=== PATIENT | male | born 1965 | race Caucasian/White ===

== ENCOUNTER 2021-01-15 15:53 | Day surgery (SDC) | payer MEDICARE, OTHER ==
[2021-01-15] MEDS ORDERED: BUPIVACAINE 0.5% VIAL IJ ONE (15:54)
[2021-01-15] MEDS ORDERED: Xylocaine 1% Vial 30 ML PF IJ ONE (15:54)
[2021-01-15] MEDS ORDERED: Depo-Medrol 40 MG/ML IM ONE (15:54)
--- NOTE | 2021-01-15 20:40 | XRAY ---
Indication: Left knee injection. Intraoperative fluoroscopy provided for 11 seconds. Single digital spot image submitted for interpretation demonstrates needle tip projecting over the left femur intercondylar notch. Small amount of contrast injected for needle tip placement. Correlate with intraoperative findings/report.
--- NOTE | 2021-01-15 20:50 | XRAY ---
Indication: Right knee injection. Intraoperative fluoroscopy provided for 11 seconds. Single digital spot image submitted for interpretation demonstrates needle tip projecting over the right femur intercondylar notch. Small amount of contrast injected for needle tip placement. Correlate with intraoperative findings/report.
--- NOTE | 2021-01-16 14:59 | XRAY ---
11 seconds of fluoroscopy was used in surgery for a left knee intra-articular injection.
--- NOTE | 2021-01-16 14:59 | XRAY ---
11 seconds of fluoroscopy was used in surgery for a right knee intra-articular injection.
== END 2021-01-15 18:25 | disposition home or self-care (01) ==
LOC: SDC-PAIN 15:53
PROVIDERS: ATTEND Psychiatry & Neurology Pain Medicine
DX: M17.0 Bilateral primary osteoarthritis of knee (principal); E11.9 Type 2 diabetes mellitus without complications; Z79.899 Other long term (current) drug therapy
CPT/HCPCS: 20610; 73560; 77002; 82947; J1030; J2001; Q9966

== ENCOUNTER 2021-02-05 06:51 | Day surgery (SDC) | payer MEDICARE, OTHER ==
[2021-02-05] MEDS ORDERED: Sodium Chloride 0.9% 10 ML FLUSH Syringe IJ ONE (06:52)
[2021-02-05] MEDS ORDERED: Depo-Medrol 40 MG/ML IM ONE (06:52)
[2021-02-05] MEDS ORDERED: DIPRIVAN 200 MG/20 ML IV ONE (08:27)
[2021-02-05] MEDS ORDERED: Lactated Ringers 1,000 ML IV ONE (09:54)
--- NOTE | 2021-02-05 09:58 | XRAY ---
36 seconds fluoroscopy time in surgery for right L4-S1 transforaminal NOE.
--- NOTE | 2021-02-05 10:07 | XRAY ---
Indication: Right L4-S1 transforaminal NOE. Intraoperative fluoroscopy provided for 36 seconds. 3 digital spot image submitted for interpretation demonstrates posterior needle tips projecting over the expected right L4 and L5 nerve roots. Small amount of contrast injected for needle tip placement. Correlate with intraoperative findings/report.
== END 2021-02-05 08:54 | disposition home or self-care (01) ==
LOC: SDC-PAIN 06:51
PROVIDERS: ATTEND Psychiatry & Neurology Pain Medicine
DX: M54.16 Radiculopathy, lumbar region (principal); E11.9 Type 2 diabetes mellitus without complications; I10 Essential (primary) hypertension; Z79.899 Other long term (current) drug therapy
CPT/HCPCS: 64483; 64484; 72100; 77003; 82947; J1030; J2704; Q9966

== ENCOUNTER 2021-03-12 07:40 | Day surgery (SDC) | payer MEDICARE, OTHER ==
[2021-03-12] MEDS ORDERED: Sodium Chloride 0.9% 10 ML FLUSH Syringe IJ ONE (07:41)
[2021-03-12] MEDS ORDERED: Depo-Medrol 40 MG/ML IM ONE (07:41)
[2021-03-12] MEDS ORDERED: Lactated Ringers 1,000 ML IV ONE (08:49)
[2021-03-12] MEDS ORDERED: DIPRIVAN 200 MG/20 ML IV ONE ×2 (08:56→09:03)
--- NOTE | 2021-03-12 10:32 | XRAY ---
Indication: Left L4-S1 transforaminal NOE. Intraoperative fluoroscopy provided for 1 minute 9 seconds. 5 digital spot images submitted for interpretation demonstrates posterior needle tips projecting over the expected left L4 and L5 nerve roots. Small amount of contrast injected for needle tip placement. Correlate with intraoperative findings/report.
--- NOTE | 2021-03-12 10:42 | XRAY ---
1 minute 9 seconds of fluoroscopy was used in surgery for a left L4-S1 transforaminal NOE.
== END 2021-03-12 09:25 | disposition home or self-care (01) ==
LOC: SDC-PAIN 07:40
PROVIDERS: ATTEND Psychiatry & Neurology Pain Medicine
DX: M54.16 Radiculopathy, lumbar region (principal); E11.9 Type 2 diabetes mellitus without complications; I10 Essential (primary) hypertension; Z79.899 Other long term (current) drug therapy
CPT/HCPCS: 64483; 64484; 72100; 77003; 82947; J1030; J2704; Q9966

== ENCOUNTER 2021-08-06 06:48 | Day surgery (SDC) | payer MEDICARE, OTHER ==
[2021-08-06] MEDS ORDERED: Depo-Medrol 40 MG/ML IM ONE (06:49)
[2021-08-06] MEDS ORDERED: Xylocaine 1% Vial 30 ML PF IJ ONE (06:49)
[2021-08-06] MEDS ORDERED: Sodium Chloride 0.9(Preservative Free) 10 ML IJ ONE (06:49)
[2021-08-06] MEDS ORDERED: DIPRIVAN 200 MG/20 ML IV ONE (08:16)
[2021-08-06] MEDS ORDERED: Lactated Ringers 1,000 ML IV ONE (08:54)
--- NOTE | 2021-08-06 10:17 | XRAY ---
Indication: Lumbar NOE. Intraoperative fluoroscopy provided for 21 seconds. 2 digital spot images submitted for interpretation demonstrates midline posterior needle tip projecting just posterior to L4-L5 interspace. Small amount of contrast injected for needle tip placement. Correlate with intraoperative findings/report.
--- NOTE | 2021-08-06 10:33 | XRAY ---
21 seconds fluoroscopy time in surgery for lumbar NOE.
== END 2021-08-06 08:40 | disposition home or self-care (01) ==
LOC: SDC-PAIN 06:48
PROVIDERS: ATTEND Psychiatry & Neurology Pain Medicine
DX: M54.16 Radiculopathy, lumbar region (principal); E11.9 Type 2 diabetes mellitus without complications; Z79.899 Other long term (current) drug therapy
CPT/HCPCS: 62323; 72100; 77003; 82947; J1030; J2001; J2704; Q9966

== ENCOUNTER 2022-02-11 08:07 | Day surgery (SDC) | payer MEDICARE, OTHER ==
[2022-02-11] MEDS ORDERED: Depo-Medrol 40 MG/ML IM ONE (08:08)
[2022-02-11] MEDS ORDERED: Sodium Chloride 0.9(Preservative Free) 10 ML IJ ONE (08:08)
[2022-02-11] MEDS ORDERED: TRANDATE 20 MG/4 ML SYRINGE IV ONE (09:15)
[2022-02-11] MEDS ORDERED: DIPRIVAN 200 MG/20 ML IV ONE (09:37)
--- NOTE | 2022-02-11 10:28 | XRAY ---
Indication: Left L4-S1 transforaminal NOE. Intraoperative fluoroscopy provided for 51 seconds. 4 digital spot image submitted for interpretation demonstrates posterior needle tips projecting over the expected left L4 and L5 nerve roots. Small amount of contrast injected for needle tip placement. Correlate with intraoperative findings/report.
--- NOTE | 2022-02-11 10:59 | XRAY ---
51 seconds fluoroscopy time in surgery for left L3-L5 transforaminal NOE.
[2022-02-11] MEDS ORDERED: Lactated Ringers 1,000 ML IV ONE (11:50)
== END 2022-02-11 10:10 | disposition home or self-care (01) ==
LOC: SDC-PAIN 08:07
PROVIDERS: ATTEND Psychiatry & Neurology Pain Medicine
DX: M54.16 Radiculopathy, lumbar region (principal); E11.9 Type 2 diabetes mellitus without complications; Z79.899 Other long term (current) drug therapy
CPT/HCPCS: 64483; 64484; 72100; 77003; 82947; J1030; J2704; Q9966

== ENCOUNTER 2022-05-06 09:40 | Day surgery (SDC) | payer MEDICARE, OTHER ==
[2022-05-06] MEDS ORDERED: LIDOCAINE HCL 2% 100 MG/5 ML IJ ONE (09:41)
[2022-05-06] MEDS ORDERED: Depo-Medrol 40 MG/ML IM ONE (09:41)
[2022-05-06] MEDS ORDERED: DIPRIVAN 200 MG/20 ML IV ONE (11:11)
[2022-05-06] MEDS ORDERED: Lactated Ringers 1,000 ML IV ONE (13:17)
--- NOTE | 2022-05-06 14:32 | XRAY ---
Indication: Bilateral L4-S1 MBB. Intraoperative fluoroscopy provided for 21 seconds. 2 digital spot image submitted for interpretation demonstrates posterior needle tips projecting over the expected left and right L4-S1 nerve roots. Correlate with intraoperative findings/report.
--- NOTE | 2022-05-06 14:49 | XRAY ---
21 seconds fluoroscopy time in surgery for bilateral L4-S1 MBB.
== END 2022-05-06 11:45 | disposition home or self-care (01) ==
LOC: SDC-PAIN 09:40 → EDSTATUS 12:46
PROVIDERS: ATTEND Psychiatry & Neurology Pain Medicine
DX: M47.816 Spondylosis without myelopathy or radiculopathy, lumbar region (principal); E11.9 Type 2 diabetes mellitus without complications; Z79.899 Other long term (current) drug therapy
CPT/HCPCS: 64493; 64494; 72020; 77002; 82947; J1030; J2704

== ENCOUNTER 2022-07-27 00:54 | Emergency (ER) | payer MEDICARE, OTHER ==
[2022-07-27 00:57] VITALS: O2SAT 95
[2022-07-27 01:11] VITALS: PULSE 84
--- NOTE | 2022-07-27 01:34 | ERPHSYRPT ---
- History of Present Illness Time Seen by Provider: 07/27/22 01:06 Historian: patient, family Exam Limitations: no limitations Patient Subjective Stated Complaint: chest pain since 4pm Triage Nursing Assessment: pt ambulated into ER without diff, spouse at bedside. Pt alert and oriented x4, cooperative. Pt c/o chest pain since 4pm today while watching tv. Pt has pain radiating down left arm. Heart tones reg, abd obese and tight with active bs x4 quad, nontender. Pt is currently seeing Dr. Jurado, manager of project management, in [place]. Pt is wearing a lunchroom monitor prescribed by Dr. Jurado x2 weeks. Monitor comes off 08/04/22 and pt will have a stress test on 08/03/22. Physician History: Some chest pain without pattern today, onset about 8 hours ago, mild. He is seeing a manager of project management now, wearing a heart monitor. Has a F/U in a week. No known CAD. Timing/Duration: today Activities at Onset: none Quality: dullness Location: substernal Chest Pain Radiation: arm Severity of Pain-Max: mild Severity of Pain-Current: mild Modifying Factors: Improves With: nothing Associated Symptoms: denies symptoms Prior Chest Pain/Cardiac Workup: recently seen/treated (seeing a manager of project management now) Aspirin Treatment Today: 325 mg x 1 Allergies/Adverse Reactions: ropinirole Adverse Reaction (Severe, Verified 07/27/22 01:11) Vomiting semaglutide [From Ozempic] Adverse Reaction (Severe, Verified 07/27/22 01:12) Home Medications: Albuterol 8 gm Mdi Hfa [Ventolin Hfa MDI] 2 puffs IH QID PRN PRN 07/27/22 [History] Levothyroxine Sodium [Levothyroxine] 37.5 mcg PO DAILY 07/27/22 [History] Omeprazole 20 mg PO DAILY 07/27/22 [History] Oxycodone / APAP 10/325 mg [Oxycodone-Acetaminophen 10-325] 1 tab PO BID PRN PRN 07/27/22 [History] Valsartan/Hydrochlorothiazide [Valsartan-Hctz 320-12.5 mg Tab] 1 tab PO BID 07/27/22 [History] Hx Tetanus, Diphtheria Vaccination/Date Given: Yes Hx Influenza Vaccination/Date Given: No Hx Pneumococcal Vaccination/Date Given: No Travel Risk - International Travel Have you traveled outside of the country in past 3 weeks: No - Coronavirus Screening Are you exhibiting any of the following symptoms?: No Close contact with a COVID-19 positive Pt in past 14-21 Days: No - Vaccine Status Have you recieved a Covid-19 vaccination: No - Review of Systems Constitutional: No Symptoms Eyes: No Symptoms Ears, Nose, & Throat: No Symptoms Respiratory: No Symptoms Cardiac: No Symptoms Abdominal/Gastrointestinal: No Symptoms Genitourinary Symptoms: No Symptoms Musculoskeletal: No Symptoms Skin: No Symptoms Neurological: No Symptoms Psychological: No Symptoms Endocrine: No Symptoms Hematologic/Lymphatic: No Symptoms Immunological/Allergic: No Symptoms All Other Systems: Reviewed and Negative - Past Medical History Pertinent Past Medical History: Yes Neurological History: No Pertinent History ENT History: No Pertinent History Cardiac History: Angina, High Cholesterol, Hypertension Respiratory History: COPD, Sleep Apnea Endocrine Medical History: Hypothyroidism Musculoskeletal History: Arthritis, Other GI Medical History: GERD, Other History: No Pertinent History Psycho-Social History: No Pertinent History Male Reproductive Disorders: No Pertinent History Other Medical History: fatty liver disease. fibrosis of the liver. chronic back pain - Past Surgical History Past Surgical History: Yes Neuro Surgical History: No Pertinent History Cardiac: No Pertinent History Respiratory: No Pertinent History Gastrointestinal: No Pertinent History Genitourinary: No Pertinent History Musculoskeletal: No Pertinent History, Other Male Surgical History: No Pertinent History Other Surgical History: injections in spine for back pain by Dr. Peña (pain management). flexor tendon surgery. rt arm surgery. colonoscopy - Social History Smoking Status: Former smoker Exposure to second hand smoke: No Drug Use: none Patient Lives Alone: No - Nursing Vital Signs Nursing Vital Signs: Initial Vital Signs Temperature 98.7 F 07/27/22 00:56 Pulse Rate 87 07/27/22 00:56 Respiratory Rate 24 07/27/22 00:56 Blood Pressure 169/101 07/27/22 00:56 O2 Sat by Pulse Oximetry 95 07/27/22 00:56 Pain Scale Pain Intensity 0 - Physical Exam General Appearance: no apparent distress Eye Exam: PERRL/EOMI Ears, Nose, Throat Exam: normal ENT inspection Neck Exam: normal inspection Respiratory Exam: normal breath sounds, lungs clear Cardiovascular Exam: regular rate/rhythm, normal heart sounds Gastrointestinal/Abdomen Exam: soft, normal bowel sounds, distention Rectal Exam: deferred Back Exam: normal inspection Extremity Exam: normal inspection, normal range of motion Neurologic Exam: alert, oriented x 3, cooperative Skin Exam: normal color, warm, dry SpO2 Interpretation: normal SpO2: 95 O2 Delivery: Room Air - Course Nursing assessment & vital signs reviewed: Yes EKG Interpreted by Me: RATE (84), Sinus Rhythm, NORMAL AXIS, NORMAL INTERVALS, NORMAL QRS, NORMAL ST-T - Radiology Exams Chest X-ray Interpretation: Interpreted by me, Negative Ordered Tests: Active Orders 24 hr Category Date Time Status CHEST 1 VIEW (PORTABLE) Stat Exams 07/27/22 01:32 Taken CBC W DIFF Stat Lab 07/27/22 01:50 Completed CMP Stat Lab 07/27/22 01:50 Completed D-DIMER QUANTITATIVE Stat Lab 07/27/22 01:50 Completed NT PRO BNPII Stat Lab 07/27/22 01:56 Received TROPONIN Q4H Lab 07/27/22 01:50 Completed TROPONIN Q4H Lab 07/27/22 05:45 Ordered TROPONIN Q4H Lab 07/27/22 09:45 Ordered Medication Summary Discontinued Medications Generic Name Dose Route Start Last Admin Trade Name Freq PRN Reason Stop Dose Admin Nitroglycerin 0.4 mg 07/27/22 01:41 07/27/22 01:49 Nitroglycerin 0.4 Mg (Ed) 0.4 Mg Tab.Subl SL 07/27/22 01:42 0.4 mg STAT ONE Administration Lab/Rad Data: Laboratory Result Diagrams 07/27/22 01:50 07/27/22 01:50 Laboratory Results 07/27/22 07/27/22 07/27/22 Range/Units 01:50 01:50 01:50 WBC (4.0-10.5) x10^3/uL RBC (4.1-5.6) x10^6/uL Hgb (12.5-18.0) g/dL Hct (42-50) % MCV (78-100) fL MCH (26-32) pg MCHC (32-36) g/dL RDW (11.5-14.0) % Plt Count (150-450) x10^3/uL MPV (7.5-11.0) fL Gran % (36.0-66.0) % Immature Gran % (Auto) (0.00-0.4) % Nucleat RBC Rel Count (0.00-0.1) % Eos # (Auto) (0-0.5) x10^3/uL Immature Gran # (Auto) (0.00-0.03) x10^3u/L Absolute Lymphs (auto) (1.0-4.6) x10^3/uL Absolute Monos (auto) (0.0-1.3) x10^3/uL Absolute Nucleated RBC (0.00-0.01) x10^3u/L Lymphocytes % (24.0-44.0) % Monocytes % (0.0-12.0) % Eosinophils % (0.00-5.0) % Basophils % (0.0-0.4) % Absolute Granulocytes (1.4-6.9) x10^3/uL Basophils # (0-0.4) x10^3/uL D-Dimer 0.43 (0.0-0.50) mg/L Sodium 138 (137-145) mmol/L Potassium 3.8 (3.5-5.1) mmol/L Chloride 100 (98-107) mmol/L Carbon Dioxide 28 (22-30) mmol/L Anion Gap 13.4 (5-15) MEQ/L BUN 11 (9-20) mg/dL Creatinine 0.94 (0.66-1.25) mg/dL Estimated GFR > 60.0 ML/MIN Glucose 180 H (74-106) mg/dL Calcium 8.9 (8.4-10.2) mg/dL Total Bilirubin 0.70 (0.2-1.3) mg/dL AST 40 (17-59) U/L ALT 28 (0-50) U/L Alkaline Phosphatase 113 (38-126) U/L Troponin I < 0.012 (0.000-0.034) ng/mL Serum Total Protein 7.5 (6.3-8.2) g/dL Albumin 4.1 (3.5-5.0) g/dL 07/27/22 Range/Units 01:50 WBC 7.9 (4.0-10.5) x10^3/uL RBC 5.72 H (4.1-5.6) x10^6/uL Hgb 17.5 (12.5-18.0) g/dL Hct 51.2 H (42-50) % MCV 89.5 (78-100) fL MCH 30.6 (26-32) pg MCHC 34.2 (32-36) g/dL RDW 13.2 (11.5-14.0) % Plt Count 242 (150-450) x10^3/uL MPV 10.0 (7.5-11.0) fL Gran % 59.2 (36.0-66.0) % Immature Gran % (Auto) 0.3 (0.00-0.4) % Nucleat RBC Rel Count 0.0 (0.00-0.1) % Eos # (Auto) 0.13 (0-0.5) x10^3/uL Immature Gran # (Auto) 0.02 (0.00-0.03) x10^3u/L Absolute Lymphs (auto) 2.26 (1.0-4.6) x10^3/uL Absolute Monos (auto) 0.73 (0.0-1.3) x10^3/uL Absolute Nucleated RBC 0.00 (0.00-0.01) x10^3u/L Lymphocytes % 28.7 (24.0-44.0) % Monocytes % 9.3 (0.0-12.0) % Eosinophils % 1.7 (0.00-5.0) % Basophils % 0.8 (0.0-0.4) % Absolute Granulocytes 4.67 (1.4-6.9) x10^3/uL Basophils # 0.06 (0-0.4) x10^3/uL D-Dimer (0.0-0.50) mg/L Sodium (137-145) mmol/L Potassium (3.5-5.1) mmol/L Chloride (98-107) mmol/L Carbon Dioxide (22-30) mmol/L Anion Gap (5-15) MEQ/L BUN (9-20) mg/dL Creatinine (0.66-1.25) mg/dL Estimated GFR ML/MIN Glucose (74-106) mg/dL Calcium (8.4-10.2) mg/dL Total Bilirubin (0.2-1.3) mg/dL AST (17-59) U/L ALT (0-50) U/L Alkaline Phosphatase (38-126) U/L Troponin I (0.000-0.034) ng/mL Serum Total Protein (6.3-8.2) g/dL Albumin (3.5-5.0) g/dL - Progress Progress: improved Air Movement: good Progress Note: 07/27/22 02:37 Pain free with one NTG. He does not want repeat troponins, or admit, or transfer, wants to go home, advised that we cannot exclude worsening condition, to include OH and . Rx one bottle of SL NTG to have pending seeing his manager of project management. Could not do E-RX, hand written. 07/27/22 02:45 Blood Culture(s) Obtained: No Antibiotics given: No Counseled pt/family regarding: lab results, diagnosis, need for follow-up, rad results Medical Desision Making - Independent Historian Additional History obtained from: Spouse - Diagnostic Testing Diagnostic test were ordered, analyzed, and reviewed by me: Yes Radiological Interpretation: Interpreted by me - Risk of complications The pt has a mod risk of morbidity or mortality based on: Need for prescription drug management - Departure Departure Disposition: Home Clinical Impression: Chest pain Qualifiers: Chest pain type: unspecified Qualified Code(s): R07.9 - Chest pain, unspecified Condition: Stable Critical Care Time: No Referrals: SAM OSMAN [Primary Care Provider] - Follow up/PCP as directed Instructions: Chest Pain (DC) Additional Instructions: Home for rest. Further testing or transfer not done at your request. Stay on aspirin, nitroglycerin if needed, see your manager of project management.
[2022-07-27] MEDS ORDERED: Nitrostat 0.4 MG (ED) SL ONE (01:41)
[2022-07-27 01:57] LABS: Absolute Neutrophil Ct (ANC) 4.67 x10^3/uL (1.4-6.9); BASOPHIL % 0.8 % (0.0-0.4); Basophil (Absolute #) 0.06 x10^3/uL (0-0.4); Eosinophil % 1.7 % (0.00-5.0); Eosinophil (Absolute #) 0.13 x10^3/uL (0-0.5); Hematocrit 51.2 % (42-50); Hemoglobin 17.5 g/dL (12.5-18.0); IMMATURE GRAN # 0.02 x10^3u/L (0.00-0.03); IMMATURE GRAN % 0.3 % (0.00-0.4); Lymphocyte (Absolute #) 2.26 x10^3/uL (1.0-4.6); Lymphocytes % 28.7 % (24.0-44.0); Mean Cell Volume 89.5 fL (78-100); Mean Corpuscular Hemoglobin 30.6 pg (26-32); Mean Corpuscular Hgb Concent. 34.2 g/dL (32-36); Monocyte (Absolute #) 0.73 x10^3/uL (0.0-1.3); Monocytes % 9.3 % (0.0-12.0); Neutrophil % 59.2 % (36.0-66.0); Platelet Count 242 x10^3/uL (150-450); Red Blood Count 5.72 x10^6/uL (4.1-5.6); Red Cell Distribution Width 13.2 % (11.5-14.0); White Blood Count 7.9 x10^3/uL (4.0-10.5)
[2022-07-27 02:03] LABS: ALBUMIN 4.1 g/dL (3.5-5.0); ALKALINE PHOSPHATASE 113 U/L (38-126); ANION GAP 13.4 MEQ/L (5-15); BLOOD UREA NITROGEN 11 mg/dL (9-20); CHLORIDE 100 mmol/L (98-107); Calcium 8.9 mg/dL (8.4-10.2); Carbon Dioxide 28 mmol/L (22-30); Creatinine 1 0.94 mg/dL (0.66-1.25); EST GLOMERULAR FILTRATION RATE > 60.0 ML/MIN; Glucose 180 mg/dL (74-106); Potassium 3.8 mmol/L (3.5-5.1); SGOT/AST 40 U/L (17-59); SGPT/ALT 28 U/L (0-50); SODIUM 138 mmol/L (137-145); Total Protein 7.5 g/dL (6.3-8.2)
[2022-07-27 02:12] VITALS: BP 133/98
--- NOTE | 2022-07-27 08:38 | XRAY ---
Indication: Chest pain Comparison: None Portable chest slightly underinflated and clear. Heart not enlarged. Bony thorax intact with osteopenia, mild degenerative changes, and left chest wall electronic monitoring device. Impression: Nonacute chest.
== END 2022-07-27 02:57 | disposition home or self-care (01) ==
LOC: ED 00:54
DX: R07.9 Chest pain, unspecified (principal); E78.5 Hyperlipidemia, unspecified; I10 Essential (primary) hypertension; Z79.891 Long term (current) use of opiate analgesic; Z79.899 Other long term (current) drug therapy; Z28.310 Unvaccinated for COVID-19
CPT/HCPCS: 36000; 36415; 71045; 80053; 83880; 84484; 85025; 85379; 99283; A9270-GY

== ENCOUNTER 2023-01-13 15:12 | Day surgery (SDC) | payer MEDICARE, OTHER ==
[2023-01-13] MEDS ORDERED: Depo-Medrol 40 MG/ML IM ONE (15:13)
[2023-01-13] MEDS ORDERED: BUPIVACAINE 0.5% VIAL IJ ONE (15:13)
[2023-01-13] MEDS ORDERED: LIDOCAINE HCL 1% 50 MG/5 ML VL PF IJ ONE (15:13)
--- NOTE | 2023-01-13 20:47 | XRAY ---
Indication: Right knee injection. Intraoperative fluoroscopy provided for 10 seconds. Single digital spot image submitted for interpretation demonstrates needle tip projecting over right femur intercondylar notch. Small amount of contrast injected for needle tip placement. Correlate with intraoperative findings/report.
--- NOTE | 2023-01-13 20:47 | XRAY ---
Indication: Left knee injection. Intraoperative fluoroscopy provided for 13 seconds. Single digital spot image submitted for interpretation demonstrates needle tip projecting over left femur intercondylar notch. Small amount of contrast injected for needle tip placement. Correlate with intraoperative findings/report.
--- NOTE | 2023-01-14 08:45 | XRAY ---
10 seconds of fluoroscopy was used in surgery for a right intra-articular knee injection.
--- NOTE | 2023-01-14 08:46 | XRAY ---
13 seconds of fluoroscopy was used in surgery for a left intra-articular knee injection.
== END 2023-01-13 18:32 | disposition home or self-care (01) ==
LOC: SDC-PAIN 15:12
PROVIDERS: ATTEND Psychiatry & Neurology Pain Medicine
DX: M17.0 Bilateral primary osteoarthritis of knee (principal); E11.9 Type 2 diabetes mellitus without complications; Z79.899 Other long term (current) drug therapy
CPT/HCPCS: 20610; 73560; 77002; 82947; J1030; J2001; Q9966

== ENCOUNTER 2023-01-14 08:42 | Day surgery (SDC) | payer MEDICARE, OTHER ==
[2023-01-14] MEDS ORDERED: BUPIVACAINE 0.5% VIAL IJ ONE (08:43)
[2023-01-14] MEDS ORDERED: DIPRIVAN 200 MG/20 ML IV ONE (11:09)
--- NOTE | 2023-01-14 12:24 | XRAY ---
Indication: Bilateral L4-S1 MBB. Intraoperative fluoroscopy provided for 16 seconds. Single digital spot image submitted for interpretation demonstrates posterior needle tips projecting over the expected left and right L4-S1 nerve roots. Correlate with intraoperative findings/report.
[2023-01-14] MEDS ORDERED: Lactated Ringers 1,000 ML IV ONE (12:28)
--- NOTE | 2023-01-14 12:33 | XRAY ---
16 seconds of fluoroscopy was used in surgery for a bilateral L4-S1 MBB.
== END 2023-01-14 11:40 | disposition home or self-care (01) ==
LOC: SDC-PAIN 08:42
PROVIDERS: ATTEND Psychiatry & Neurology Pain Medicine
DX: M47.816 Spondylosis without myelopathy or radiculopathy, lumbar region (principal); E11.9 Type 2 diabetes mellitus without complications
CPT/HCPCS: 64493; 64494; 72020; 77002; 82947; J2704

== ENCOUNTER 2023-01-23 20:47 | Emergency (ER) | payer MEDICARE, OTHER ==
[2023-01-23 20:54] VITALS: TEMP 97.9
[2023-01-23 21:05] LABS: Absolute Neutrophil Ct (ANC) 7.03 x10^3/uL (1.4-6.9); BASOPHIL % 0.7 % (0.0-0.4); Basophil (Absolute #) 0.07 x10^3/uL (0-0.4); Eosinophil % 1.3 % (0.00-5.0); Eosinophil (Absolute #) 0.13 x10^3/uL (0-0.5); Hematocrit 56.6 % (42-50); Hemoglobin 18.6 g/dL (12.5-18.0); IMMATURE GRAN # 0.02 x10^3u/L (0.00-0.03); IMMATURE GRAN % 0.2 % (0.00-0.4); Lymphocyte (Absolute #) 2.31 x10^3/uL (1.0-4.6); Lymphocytes % 22.5 % (24.0-44.0); Mean Cell Volume 88.3 fL (78-100); Mean Corpuscular Hgb Concent. 32.9 g/dL (32-36); Mean Platelet Volume 9.8 fL (7.5-11.0); Monocyte (Absolute #) 0.72 x10^3/uL (0.0-1.3); Neutrophil % 68.3 % (36.0-66.0); Platelet Count 207 x10^3/uL (150-450); Red Blood Count 6.41 x10^6/uL (4.1-5.6); Red Cell Distribution Width 12.7 % (11.5-14.0); White Blood Count 10.3 x10^3/uL (4.0-10.5)
[2023-01-23] MEDS ORDERED: NITRO-BID 2% UD PACKETS TOP ONE (21:05)
[2023-01-23] MEDS ORDERED: BABY ASPIRIN 81 MG CHEW PO ONE (21:05)
[2023-01-23] MEDS ORDERED: NITRO-BID 2% UD PACKETS ONE (21:06)
[2023-01-23] MEDS ORDERED: BABY ASPIRIN 81 MG CHEW ONE (21:06)
[2023-01-23] MEDS ORDERED: MORPHINE SULFATE 2 MG INJ IV ONE (21:14)
--- NOTE | 2023-01-23 21:17 | ERPHSYRPT ---
- History of Present Illness Time Seen by Provider: 01/23/23 21:00 Patient Subjective Stated Complaint: pt states that while resting he started experiencing left upper chest pain that radiates to his left armpit, he describ ed it as a constant pressure that he rates a 10/10. Triage Nursing Assessment: pt ambulated to room 6 independently with slow steady gait after standing on scale for weight acquisition. pt is alert and oriented times three, is able to move all extremities, able to speak in complete sentences, and with resp even and unlabored. heart sounds present and normal. no jvd or edema noted. bilat radail and pedal pulses palpable. anterior bilateral lung sounds clear throughout. skin warm, dry, intact, and slightly monica in color. denies fever, cough, chills. denies further radiation, n/v, sob, difficulty breathing, lightheadedness, dizziness, change in appetite, change in urination or bowel elimination. Physician History: 57yo m presents w/ complaints of chest pain. Pain started 2hr prior to coming to ED, states the pain is located over his left chest and into his left axillary region. 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 Pt states he can feel his pacemaker shock him, which is what causes this chest pain, which remains local to the site near the pacemaker. Pt denies radiation of pain in to neck, jaw or back. Pt currently denies soa, n/v/abdominal pain. Timing/Duration: today, hour(s) (2hrs) Activities at Onset: none Quality: burning, sharpness Location: other (left side chest, left lateral pectoris) Chest Pain Radiation: no radiation Severity of Pain-Max: moderate Severity of Pain-Current: mild Modifying Factors: Improves With: nothing Associated Symptoms: denies symptoms Nitro Today/Relief: no nitro taken today Aspirin Treatment Today: 81 mg x 2 Body Map: 1 - TTP in this region, states this is where is pain is located Allergies/Adverse Reactions: metformin Adverse Reaction (Severe, Verified 01/23/23 20:48) Stomach Pain ropinirole Adverse Reaction (Severe, Verified 01/23/23 20:48) Vomiting semaglutide [From Ozempic] Adverse Reaction (Severe, Verified 01/23/23 20:48) Home Medications: Albuterol 8 gm Mdi Hfa [Ventolin Hfa MDI] 2 puffs IH QID PRN PRN 07/27/22 [History] Levothyroxine Sodium [Levothyroxine] 37.5 mcg PO DAILY 07/27/22 [History] Omeprazole 20 mg PO DAILY 07/27/22 [History] Oxycodone / APAP 10/325 mg [Oxycodone-Acetaminophen 10-325] 1 tab PO BID PRN PRN 07/27/22 [History] Valsartan/Hydrochlorothiazide [Valsartan-Hctz 320-12.5 mg Tab] 1 tab PO BID 04/20 [History] Fluticasone Propion/Salmeterol [Fluticasone-Salmeterol 250-50] 1 puff IH DAILY 01/23/23 [History] Hx Tetanus, Diphtheria Vaccination/Date Given: Yes Hx Influenza Vaccination/Date Given: No Hx Pneumococcal Vaccination/Date Given: No Immunizations Up to Date: Yes Travel Risk - International Travel Have you traveled outside of the country in past 3 weeks: No - Coronavirus Screening Are you exhibiting any of the following symptoms?: No Close contact with a COVID-19 positive Pt in past 14-21 Days: Yes - Vaccine Status Have you recieved a Covid-19 vaccination: No - Review of Systems Constitutional: No Fever, No Chills Eyes: No Symptoms Respiratory: No Cough, No Dyspnea Cardiac: Chest Pain Abdominal/Gastrointestinal: No Abdominal Pain, No Nausea, No Vomiting, No Diarrhea Neurological: No Dizziness, No Focal Weakness, No Sensory Changes - Past Medical History Pertinent Past Medical History: Yes Neurological History: No Pertinent History ENT History: No Pertinent History Cardiac History: Angina, Arrhythmia, High Cholesterol, Hypertension Respiratory History: COPD, Sleep Apnea Endocrine Medical History: Hypothyroidism Musculoskeletal History: Arthritis, Other GI Medical History: GERD, Other History: No Pertinent History Psycho-Social History: No Pertinent History Male Reproductive Disorders: No Pertinent History Other Medical History: fatty liver disease. fibrosis of the liver. chronic back/ knee pain - Past Surgical History Past Surgical History: Yes Neuro Surgical History: No Pertinent History Cardiac: No Pertinent History Respiratory: No Pertinent History Gastrointestinal: No Pertinent History Genitourinary: No Pertinent History Musculoskeletal: No Pertinent History, Other Male Surgical History: No Pertinent History Other Surgical History: injections in spine for back pain by Dr. Peña (pain management). flexor tendon surgery. rt arm surgery. colonoscopy. PPM. EGD, injections in bilat knees - Social History Smoking Status: Former smoker Exposure to second hand smoke: No Drug Use: none Patient Lives Alone: No - Nursing Vital Signs Nursing Vital Signs: Initial Vital Signs Temperature 97.9 F 01/23/23 20:47 Pulse Rate 65 01/23/23 20:47 Respiratory Rate 21 01/23/23 20:47 Blood Pressure 140/85 01/23/23 20:47 O2 Sat by Pulse Oximetry 98 01/23/23 20:47 Pain Scale Pain Intensity 8 - Physical Exam General Appearance: no apparent distress, alert Respiratory Exam: normal breath sounds, lungs clear, No respiratory distress Cardiovascular Exam: regular rate/rhythm, normal heart sounds, other (TTP over left chest in area of pacemaker, left pec) Gastrointestinal/Abdomen Exam: soft, No tenderness, No mass Extremity Exam: normal inspection, normal range of motion Neurologic Exam: alert, oriented x 3, cooperative, normal mood/affect, sensation nml, No motor deficits SpO2: 95 O2 Delivery: Nasal Cannula (wears O2 at night because he cannot tolerate cpap) - Course Nursing assessment & vital signs reviewed: Yes EKG Interpreted by Me: RATE (64), Sinus Rhythm, NORMAL AXIS, NORMAL QRS, Other (prolonged [place] interval) - CT Exams Chest CT Interpretation: Negative, Tele-radiologist Report, Other (Unremarkable study with no pulmonary masses, ground glass opacities, or) Ordered Tests: Active Orders 24 hr Category Date Time Status CHEST 1 VIEW (PORTABLE) Stat Exams 01/23/23 20:55 Completed CHEST WITH CONTRAST [CT] Stat Exams 01/23/23 21:14 Completed CBC W DIFF Stat Lab 01/23/23 21:00 Completed CMP Stat Lab 01/23/23 21:00 Completed TROPONIN Q4H Lab 01/23/23 21:00 Completed TROPONIN Q4H Lab 01/24/23 00:46 Completed TROPONIN Q4H Lab 01/24/23 05:00 Ordered Medication Summary Discontinued Medications Generic Name Dose Route Start Last Admin Trade Name Lm PRN Reason Stop Dose Admin Aspirin 162 mg 01/23/23 21:05 01/23/23 21:11 Aspirin 81 Mg Tab.Chew PO 01/23/23 21:06 162 mg STAT ONE Administration Aspirin Confirm 01/23/23 21:06 Aspirin 81 Mg Tab.Chew Administered 01/23/23 21:07 Dose 162 mg .ROUTE .STK-MED ONE Lorazepam 2 mg 01/23/23 22:18 01/23/23 22:21 Lorazepam 2 Mg/1 Ml 2 Mg Vial IV 01/23/23 22:19 2 mg STAT ONE Administration Lorazepam Confirm 01/23/23 22:20 Lorazepam 2 Mg/1 Ml 2 Mg Vial Administered 01/23/23 22:21 Dose 2 mg .ROUTE .STK-MED ONE Morphine Sulfate 2 mg 01/23/23 21:14 01/23/23 21:23 Morphine Sulfate 2 Mg/Ml Inj IV 01/23/23 21:15 2 mg STAT ONE Administration Morphine Sulfate Confirm 01/23/23 21:23 Morphine Sulfate 2 Mg/Ml Inj Administered 01/23/23 21:24 Dose 2 mg .ROUTE .STK-MED ONE Nitroglycerin 1 gm 01/23/23 21:05 01/23/23 21:11 Nitroglycerin 1 Gm Packet TOP 01/23/23 21:06 1 gm STAT ONE Administration Nitroglycerin Confirm 01/23/23 21:06 Nitroglycerin 1 Gm Packet Administered 01/23/23 21:07 Dose 1 gm .ROUTE .STK-MED ONE Ondansetron HCl 4 mg 01/23/23 22:35 01/23/23 22:49 Ondansetron Hcl 4 Mg/2 Ml Vial IV 01/23/23 22:36 4 mg STAT ONE Administration Ondansetron HCl Confirm 01/23/23 22:37 Ondansetron Hcl 4 Mg/2 Ml Vial Administered 01/23/23 22:38 Dose 4 mg .ROUTE .STK-MED ONE Lab/Rad Data: Laboratory Result Diagrams 01/23/23 21:00 01/23/23 21:00 Laboratory Results 01/24/23 01/23/23 01/23/23 Range/Units 00:46 21:00 21:00 WBC (4.0-10.5) x10^3/uL RBC (4.1-5.6) x10^6/uL Hgb (12.5-18.0) g/dL Hct (42-50) % MCV (78-100) fL MCH (26-32) pg MCHC (32-36) g/dL RDW (11.5-14.0) % Plt Count (150-450) x10^3/uL MPV (7.5-11.0) fL Gran % (36.0-66.0) % Immature Gran % (Auto) (0.00-0.4) % Nucleat RBC Rel Count (0.00-0.1) % Eos # (Auto) (0-0.5) x10^3/uL Immature Gran # (Auto) (0.00-0.03) x10^3u/L Absolute Lymphs (auto) (1.0-4.6) x10^3/uL Absolute Monos (auto) (0.0-1.3) x10^3/uL Absolute Nucleated RBC (0.00-0.01) x10^3u/L Lymphocytes % (24.0-44.0) % Monocytes % (0.0-12.0) % Eosinophils % (0.00-5.0) % Basophils % (0.0-0.4) % Absolute Granulocytes (1.4-6.9) x10^3/uL Basophils # (0-0.4) x10^3/uL Sodium 138 (137-145) mmol/L Potassium 4.0 (3.5-5.1) mmol/L Chloride 103 (98-107) mmol/L Carbon Dioxide 24 (22-30) mmol/L Anion Gap 14.6 (5-15) MEQ/L BUN 14 (9-20) mg/dL Creatinine 1.10 (0.66-1.25) mg/dL Estimated GFR > 60.0 ML/MIN Glucose 113 H (74-106) mg/dL Calcium 9.1 (8.4-10.2) mg/dL Total Bilirubin 1.10 (0.2-1.3) mg/dL AST 30 (17-59) U/L ALT 37 (0-50) U/L Alkaline Phosphatase 97 (38-126) U/L Troponin I < 0.012 < 0.012 (0.000-0.034) ng/mL Serum Total Protein 8.0 (6.3-8.2) g/dL Albumin 4.8 (3.5-5.0) g/dL 01/23/23 Range/Units 21:00 WBC 10.3 (4.0-10.5) x10^3/uL RBC 6.41 H (4.1-5.6) x10^6/uL Hgb 18.6 H (12.5-18.0) g/dL Hct 56.6 H (42-50) % MCV 88.3 (78-100) fL MCH 29.0 (26-32) pg MCHC 32.9 (32-36) g/dL RDW 12.7 (11.5-14.0) % Plt Count 207 (150-450) x10^3/uL MPV 9.8 (7.5-11.0) fL Gran % 68.3 H (36.0-66.0) % Immature Gran % (Auto) 0.2 (0.00-0.4) % Nucleat RBC Rel Count 0.0 (0.00-0.1) % Eos # (Auto) 0.13 (0-0.5) x10^3/uL Immature Gran # (Auto) 0.02 (0.00-0.03) x10^3u/L Absolute Lymphs (auto) 2.31 (1.0-4.6) x10^3/uL Absolute Monos (auto) 0.72 (0.0-1.3) x10^3/uL Absolute Nucleated RBC 0.00 (0.00-0.01) x10^3u/L Lymphocytes % 22.5 L (24.0-44.0) % Monocytes % 7.0 (0.0-12.0) % Eosinophils % 1.3 (0.00-5.0) % Basophils % 0.7 (0.0-0.4) % Absolute Granulocytes 7.03 H (1.4-6.9) x10^3/uL Basophils # 0.07 (0-0.4) x10^3/uL Sodium (137-145) mmol/L Potassium (3.5-5.1) mmol/L Chloride (98-107) mmol/L Carbon Dioxide (22-30) mmol/L Anion Gap (5-15) MEQ/L BUN (9-20) mg/dL Creatinine (0.66-1.25) mg/dL Estimated GFR ML/MIN Glucose (74-106) mg/dL Calcium (8.4-10.2) mg/dL Total Bilirubin (0.2-1.3) mg/dL AST (17-59) U/L ALT (0-50) U/L Alkaline Phosphatase (38-126) U/L Troponin I (0.000-0.034) ng/mL Serum Total Protein (6.3-8.2) g/dL Albumin (3.5-5.0) g/dL - Progress Progress: improved Air Movement: good Progress Note: 01/23/23 22:[address], had episode of large volume emesis containing bright red blood CT abd/pelvis ordered, zofran given 01/23/23 22:39 blood actually found to be coming from nostrils, not GI source, will cancel CT abd/pel 01/24/23 01:46 cp improved, pt sleeping in room troponins negative x2, imaging negative for acute pathology discussed possibility of admission for obs w/ pt - he stated he would not be willing to stay in the hospital i informed pt that he needs to f/u w/ Dr Jurado as soon as possible Discussed pt's feeling of being shocked by pacemaker w/ rep from [employer] - he stated that pacemaker has only been activating 1% of the time and that pt's who have infrequent activations can be more sensitive to the pacemaker turning on, and that this is a common occurrence. Will dc pt home w/ strict return precautions if pain returns or worsens - pt voiced understanding, states she will call Rhiannon's office first thing wednesday Blood Culture(s) Obtained: No Antibiotics given: No Will see patient in: office Counseled pt/family regarding: lab results, diagnosis, need for follow-up, rad results Medical Desision Making - Diagnostic Testing Diagnostic test were ordered, analyzed, and reviewed by me: Yes Radiological Interpretation: Teleradiologist Report - Risk of complications Low Risk: Low risk of morbidity from additional dx testing or treatment - Departure Departure Disposition: Home Clinical Impression: Chest pain Qualifiers: Chest pain type: unspecified Qualified Code(s): R07.9 - Chest pain, unspecified Condition: Stable Critical Care Time: No Referrals: SAM OSMAN [Primary Care Provider] - Follow up/PCP as directed Additional Instructions: Needs to f/u w/ Dr Jurado as soon as possible to discuss pacemaker function
[2023-01-23] MEDS ORDERED: MORPHINE SULFATE 2 MG INJ ONE (21:23)
[2023-01-23 21:24] LABS: ALBUMIN 4.8 g/dL (3.5-5.0); ALKALINE PHOSPHATASE 97 U/L (38-126); ANION GAP 14.6 MEQ/L (5-15); BLOOD UREA NITROGEN 14 mg/dL (9-20); CHLORIDE 103 mmol/L (98-107); Calcium 9.1 mg/dL (8.4-10.2); Carbon Dioxide 24 mmol/L (22-30); EST GLOMERULAR FILTRATION RATE > 60.0 ML/MIN; Glucose 113 mg/dL (74-106); SGOT/AST 30 U/L (17-59); SGPT/ALT 37 U/L (0-50); SODIUM 138 mmol/L (137-145)
--- NOTE | 2023-01-23 21:30 | XRAY ---
Indication: Chest pain. Comparison: July 27, 2022 Portable chest remains clear. Heart not enlarged with new left dual-lead pacemaker. Bony thorax intact again with osteopenia and mild degenerative changes. Impression: Continued nonacute chest with chronic features.
[2023-01-23] MEDS ORDERED: Ativan 2 MG/1 ML VIAL IV ONE (22:18)
[2023-01-23] MEDS ORDERED: Ativan 2 MG/1 ML VIAL ONE (22:20)
[2023-01-23] MEDS ORDERED: Zofran 4 MG/2 ML VIAL IV ONE (22:35)
[2023-01-23] MEDS ORDERED: Zofran 4 MG/2 ML VIAL ONE (22:37)
--- NOTE | 2023-01-23 23:52 | XRAY ---
CLINICAL HISTORY:chest pain COMPARISON:None. TECHNIQUE:Contiguous axial CT images of the chest were acquired with the administration of intravenous contrast. Coronal and sagittal reconstructions were obtained. FINDINGS: No pulmonary masses, ground glass opacities, or consolidations. Bilateral lower lobes posterior segments subpleural patchy parenchymal veiling, possibly gravitational changes. Middle lobe fine atelectatic plate. Tiny calcified right hilar and mediastinal lymph nodes. Otherwise, no pathologically enlarged mediastinal, hilar, or axillary lymph node identified. No free or encysted pleural effusions. Heart size is normal, and there is no pericardial effusion. Patent pulmonary artery and its main branches. A cardiac pacemaker is noted. Mildly dilated ascending aorta reaching 3.7 cm in diameter. Patent thoracic aorta with no definite intraluminal hypodense thrombi or dissecting intimal flaps. There is no definite mass lesion in the chest wall. No evidence of vertebral structural collapse or dislocation. Degenerative changes of the spine. Otherwise, an intact bony thoracic cage with no fractures. The scanned upper abdomen shows a fatty liver. IMPRESSION: Unremarkable study with no pulmonary masses, ground glass opacities, or consolidations. Electronically Signed by: Jarod Llamas MD. (01/23/2023 22:51:34 ELDER COUNSELOR)
[2023-01-24 01:39] VITALS: BP 108/65; PULSE 64; RESP 21
[2023-01-24 01:41] VITALS: O2SAT 95
== END 2023-01-24 02:02 | disposition home or self-care (01) ==
LOC: ED 20:47
DX: R07.9 Chest pain, unspecified (principal); E78.5 Hyperlipidemia, unspecified; I10 Essential (primary) hypertension; Z79.891 Long term (current) use of opiate analgesic; Z79.899 Other long term (current) drug therapy; Z28.310 Unvaccinated for COVID-19
CPT/HCPCS: 36000; 36415; 71045; 71260; 80053; 84484; 85025; 96374; 96375; 99284; J2060; J2270; J2405; A9270-GY

== ENCOUNTER 2023-03-10 06:38 | Day surgery (SDC) | payer MEDICARE, OTHER ==
[2023-03-10] MEDS ORDERED: XYLOCAINE-MPF 1% 5ML SDV IJ ONE (06:39)
[2023-03-10] MEDS ORDERED: BUPIVACAINE 0.5% VIAL IJ ONE (06:39)
[2023-03-10] MEDS ORDERED: Depo-Medrol 40 MG/ML IM ONE (06:39)
[2023-03-10] MEDS ORDERED: DIPRIVAN 200 MG/20 ML IV ONE (08:12)
--- NOTE | 2023-03-10 10:14 | XRAY ---
Indication: Right L4-S1 RFA. Intraoperative fluoroscopy provided for 24 seconds. 6 digital spot image submitted for interpretation demonstrates posterior needle tips projecting over the expected right L4-S1 nerve roots. Correlate with intraoperative findings/report.
--- NOTE | 2023-03-10 10:44 | XRAY ---
24 seconds of fluoroscopy was used in surgery for a right L4-S1 RFA.
[2023-03-10] MEDS ORDERED: Lactated Ringers 1,000 ML IV ONE (15:26)
== END 2023-03-10 08:41 | disposition home or self-care (01) ==
LOC: SDC-PAIN 06:38
PROVIDERS: ATTEND Psychiatry & Neurology Pain Medicine
DX: M47.816 Spondylosis without myelopathy or radiculopathy, lumbar region (principal); E11.9 Type 2 diabetes mellitus without complications; Z79.899 Other long term (current) drug therapy
CPT/HCPCS: 64635; 64636; 72100; 77002; 82947; J1030; J2704

== ENCOUNTER 2023-03-11 06:43 | Day surgery (SDC) | payer MEDICARE, OTHER ==
[2023-03-11] MEDS ORDERED: Depo-Medrol 40 MG/ML IM ONE (06:44)
[2023-03-11] MEDS ORDERED: XYLOCAINE-MPF 1% 5ML SDV IJ ONE (06:44)
[2023-03-11] MEDS ORDERED: BUPIVACAINE 0.5% VIAL IJ ONE (06:44)
[2023-03-11] MEDS ORDERED: DIPRIVAN 200 MG/20 ML IV ONE ×2 (08:01→08:13)
--- NOTE | 2023-03-11 09:29 | XRAY ---
Indication: Left L4-S1 RFA. Intraoperative fluoroscopy provided for 24 seconds. 4 digital spot image submitted for interpretation demonstrates posterior needle tips projecting over the expected left L4-S1 nerve roots. Correlate with intraoperative findings/report.
--- NOTE | 2023-03-11 10:25 | XRAY ---
24 seconds of fluoroscopy was used in surgery for a left L4-S1 RFA.
[2023-03-11] MEDS ORDERED: Lactated Ringers 1,000 ML IV ONE (15:47)
== END 2023-03-11 08:34 | disposition home or self-care (01) ==
LOC: SDC-PAIN 06:43
PROVIDERS: ATTEND Psychiatry & Neurology Pain Medicine
DX: M47.817 Spondylosis without myelopathy or radiculopathy, lumbosacral region (principal); E11.9 Type 2 diabetes mellitus without complications; Z79.899 Other long term (current) drug therapy
CPT/HCPCS: 64635; 64636; 72100; 77002; 82947; J1030; J2704

== ENCOUNTER 2023-07-21 14:52 | Day surgery (SDC) | payer MEDICARE, OTHER ==
[2023-07-21] MEDS ORDERED: LIDOCAINE HCL 1% 50 MG/5 ML VL PF IJ ONE (14:53)
[2023-07-21] MEDS ORDERED: SYNVISC 16 MG/2 ML SYRINGE IU ONE (14:53)
--- NOTE | 2023-07-21 21:02 | XRAY ---
Indication: Right knee injection Intraoperative fluoroscopy provided for 10 seconds. Single digital spot image submitted for interpretation demonstrates needle tip projecting over the right femur intercondylar notch. Small amount of contrast injected for needle tip placement. Correlate with intraoperative findings/report.
--- NOTE | 2023-07-21 21:02 | XRAY ---
Indication: Left knee injection Intraoperative fluoroscopy provided for 12 seconds. Single digital spot image submitted for interpretation demonstrates needle tip projecting over the left femur intercondylar notch. Small amount of contrast injected for needle tip placement. Correlate with intraoperative findings/report.
--- NOTE | 2023-07-22 08:57 | XRAY ---
12 seconds of fluoroscopy was used in surgery for a left intra-articular knee injection.
--- NOTE | 2023-07-22 08:57 | XRAY ---
10 seconds of fluoroscopy was used in surgery for a right intra-articular knee injection.
== END 2023-07-21 18:05 | disposition home or self-care (01) ==
LOC: SDC-PAIN 14:52
PROVIDERS: ATTEND Psychiatry & Neurology Pain Medicine
DX: M17.0 Bilateral primary osteoarthritis of knee (principal); E11.9 Type 2 diabetes mellitus without complications
CPT/HCPCS: 20610; 73560; 77002; 82947; J2001; J7325; Q9966

== ENCOUNTER 2023-07-28 15:05 | Day surgery (SDC) | payer MEDICARE, OTHER ==
[2023-07-28] MEDS ORDERED: SYNVISC 16 MG/2 ML SYRINGE IU ONE (15:06)
[2023-07-28] MEDS ORDERED: XYLOCAINE-MPF 1% 5ML SDV IJ ONE (15:06)
--- NOTE | 2023-07-28 18:26 | XRAY ---
Indication: Right knee injection. Intraoperative fluoroscopy provided for 15 seconds. Single digital spot image submitted for interpretation demonstrates needle tip projecting over right femur intercondylar notch. Small amount of contrast injected for needle tip placement. Correlate with intraoperative findings/report.
--- NOTE | 2023-07-28 18:27 | XRAY ---
Indication: Left knee injection. Intraoperative fluoroscopy provided for 11 seconds. Single digital spot image submitted for interpretation demonstrates needle tip projecting over left femur intercondylar notch. Small amount of contrast injected for needle tip placement. Correlate with intraoperative findings/report.
--- NOTE | 2023-07-29 14:46 | XRAY ---
15 seconds of fluoroscopy was used in surgery for a right intra-articular knee injection.
--- NOTE | 2023-07-29 14:47 | XRAY ---
11 seconds of fluoroscopy was used in surgery for a left intra-articular knee injection.
== END 2023-07-28 17:07 | disposition home or self-care (01) ==
LOC: SDC-PAIN 15:05
PROVIDERS: ATTEND Psychiatry & Neurology Pain Medicine
DX: M17.0 Bilateral primary osteoarthritis of knee (principal); E11.9 Type 2 diabetes mellitus without complications
CPT/HCPCS: 20610; 73560; 77002; 82947; J7325; Q9966

== ENCOUNTER 2023-08-04 13:49 | Day surgery (SDC) | payer MEDICARE, OTHER ==
[2023-08-04] MEDS ORDERED: SYNVISC 16 MG/2 ML SYRINGE IU ONE (13:50)
[2023-08-04] MEDS ORDERED: XYLOCAINE-MPF 1% 5ML SDV IJ ONE (13:50)
--- NOTE | 2023-08-04 16:52 | XRAY ---
Indication: Left knee injection. Intraoperative fluoroscopy provided for 6 seconds. Single digital spot image submitted for interpretation demonstrates needle tip projecting over left femur intercondylar notch. Small amount of contrast injected for needle tip placement. Correlate with intraoperative findings/report.
--- NOTE | 2023-08-04 16:53 | XRAY ---
Indication: Right knee injection. Intraoperative fluoroscopy provided for 8 seconds. Single digital spot image submitted for interpretation demonstrates needle tip projecting over right femur intercondylar notch. Small amount of contrast injected for needle tip placement. Correlate with intraoperative findings/report.
--- NOTE | 2023-08-04 17:15 | XRAY ---
6 seconds of fluoroscopy was used in surgery for a left intra-articular knee injection.
--- NOTE | 2023-08-04 17:15 | XRAY ---
8 seconds of fluoroscopy was used in surgery for a right intra-articular knee injection.
== END 2023-08-04 15:08 | disposition home or self-care (01) ==
LOC: SDC-PAIN 13:49
PROVIDERS: ATTEND Psychiatry & Neurology Pain Medicine
DX: M17.0 Bilateral primary osteoarthritis of knee (principal); E11.9 Type 2 diabetes mellitus without complications
CPT/HCPCS: 20610; 73560; 77002; 82947; J7325; Q9966

== ENCOUNTER 2023-09-22 07:05 | Day surgery (SDC) | payer MEDICARE, OTHER ==
[2023-09-22] MEDS ORDERED: BUPIVACAINE 0.5% VIAL IJ ONE (07:06)
[2023-09-22] MEDS ORDERED: Depo-Medrol 40 MG/ML IM ONE (07:06)
[2023-09-22] MEDS ORDERED: Lactated Ringers 1,000 ML IV ONE (08:52)
[2023-09-22] MEDS ORDERED: DIPRIVAN 200 MG/20 ML IV ONE (09:12)
--- NOTE | 2023-09-22 10:41 | XRAY ---
Indication: Bilateral SI joint injection. Intraoperative fluoroscopy provided for 23 seconds. 2 digital spot image submitted for interpretation demonstrates posterior needle tips projecting over the expected left and right SI joints. Small amount of contrast injected for needle tip placement. Correlate with intraoperative findings/report.
--- NOTE | 2023-09-22 13:24 | XRAY ---
23 seconds of fluoroscopy was used in surgery for a bilateral sacroiliac joint injection.
== END 2023-09-22 09:45 | disposition home or self-care (01) ==
LOC: SDC-PAIN 07:05
PROVIDERS: ATTEND Psychiatry & Neurology Pain Medicine
DX: M46.1 Sacroiliitis, not elsewhere classified (principal); E11.9 Type 2 diabetes mellitus without complications
CPT/HCPCS: 01992; 27096; 72202; 77002; 82947; G0260; J1010; J2704; Q9966

== ENCOUNTER 2024-04-28 12:05 | Emergency (ER) | payer MEDICARE ==
[2024-04-28 12:16] VITALS: TEMP 98.4
--- NOTE | 2024-04-28 12:18 | ERPHSYRPT ---
- History of Present Illness Time Seen by Provider: 04/28/24 12:20 Historian: patient, family Exam Limitations: no limitations Patient Subjective Stated Complaint: pt c/o of chest pain that has radiated to the left and right arm and between his shoulder blades in his back Triage Nursing Assessment: Pt brought to the ER by his , pt walked into the ER without assistance, hypertensive, rates chest pain as 7/10, pulses normal, skin n/w/d, denies N&V, has a pacemaker, denies hx of [place], lightheadedness and dizziness, doesn't appear to be in any distress Physician History: This is an overweight 58-year-old white male patient who has no documented history of coronary artery disease but does have a pacemaker in place and has a history of hypertension, hypothyroidism and gastroesophageal reflux disease and presents with intermittent chest pain for 3 days. The pain was traveling between his scapulae and into bilateral shoulders. Today, the pain is central substernal and is radiating anteriorly to the left chest. Patient does see a pain specialist, Dr. Peña. Patient has a medical associate, Dr. Jurado. Prior to arrival patient took 4 baby aspirin Timing/Duration: day(s) (3) Location: substernal, central Chest Pain Radiation: neck, arm Severity of Pain-Max: moderate Severity of Pain-Current: mild Modifying Factors: Improves With: nothing Associated Symptoms: No nausea, No abdominal pain, No shortness of breath, No cough, No fever, No headache Nitro Today/Relief: no nitro taken today Aspirin Treatment Today: 81 mg x 4, provided at home Allergies/Adverse Reactions: metformin Adverse Reaction (Severe, Verified 04/28/24 12:16) Stomach Pain ropinirole Adverse Reaction (Severe, Verified 04/28/24 12:16) Vomiting semaglutide [From Ozempic] Adverse Reaction (Severe, Verified 04/28/24 12:16) Home Medications: Albuterol 8 gm Mdi Hfa [Ventolin Hfa MDI] 2 puffs IH QID PRN PRN 07/27/22 [History] Levothyroxine Sodium [Levothyroxine] 50 mcg PO DAILY 07/27/22 [History] Omeprazole 40 mg PO DAILY 07/27/22 [History] Fluticasone Propion/Salmeterol [Fluticasone-Salmeterol 250-50] 1 puff IH DAILY 01/23/23 [History] Ergocalciferol (Vitamin D2) [Vitamin D2] 1,250 mcg PO WEEKLY 04/28/24 [History] Oxycodone HCl 10 mg PO BID 04/28/24 [History] Rosuvastatin Calcium [Crestor] 10 mg PO DAILY 04/28/24 [History] Sitagliptin Phosphate [Januvia] 100 mg PO DAILY 04/28/24 [History] Testosterone Cypionate [Azmiro] 200 mg IM UD 04/28/24 [History] Valsartan 160 mg PO BID 04/28/24 [History] Hx Tetanus, Diphtheria Vaccination/Date Given: Yes Hx Influenza Vaccination/Date Given: No Hx Pneumococcal Vaccination/Date Given: No Travel Risk - International Travel Have you traveled outside of the country in past 3 weeks: No - Emerging Infectious Disease Are you exhibiting symptoms associated with any current EIDs: No - Review of Systems Constitutional: No Symptoms Eyes: No Symptoms Ears, Nose, & Throat: No Symptoms Respiratory: No Symptoms Cardiac: Chest Pain Abdominal/Gastrointestinal: No Symptoms Genitourinary Symptoms: No Symptoms Musculoskeletal: No Symptoms Skin: No Symptoms Neurological: No Symptoms Psychological: No Symptoms Endocrine: No Symptoms Hematologic/Lymphatic: No Symptoms Immunological/Allergic: No Symptoms All Other Systems: Reviewed and Negative - Past Medical History Pertinent Past Medical History: Yes Neurological History: No Pertinent History ENT History: No Pertinent History Cardiac History: Angina, Arrhythmia, High Cholesterol, Hypertension Respiratory History: COPD, Sleep Apnea Endocrine Medical History: Hypothyroidism Musculoskeletal History: Arthritis, Other GI Medical History: GERD, Other History: No Pertinent History Psycho-Social History: No Pertinent History Male Reproductive Disorders: No Pertinent History Other Medical History: fatty liver disease. fibrosis of the liver. chronic back/ knee pain - Past Surgical History Past Surgical History: Yes Neuro Surgical History: No Pertinent History Cardiac: No Pertinent History Respiratory: No Pertinent History Gastrointestinal: No Pertinent History Genitourinary: No Pertinent History Musculoskeletal: No Pertinent History, Other Male Surgical History: No Pertinent History Other Surgical History: injections in spine for back pain by Dr. Peña (pain management). flexor tendon surgery. rt arm surgery. colonoscopy. PPM. EGD, injections in bilat knees - Social History Smoking Status: Former smoker Exposure to second hand smoke: No Drug Use: none Patient Lives Alone: No - Social Determinants of Health Will the patient participate in the screening: Yes Do you worry about a steady place to live?: No Do you have any problems with any of the following?: No known problems In the past 12 months,have you had to go without utilities?: No Transportation Issues: No Has anyone in your support network made you feel unsafe?: No Have you or anyone in your house had to go without enough: No - Nursing Vital Signs Nursing Vital Signs: Initial Vital Signs Temperature 98.4 F 04/28/24 12:06 Pulse Rate 73 04/28/24 12:06 Respiratory Rate 18 04/28/24 12:06 Blood Pressure 163/106 04/28/24 12:06 O2 Sat by Pulse Oximetry 97 04/28/24 12:06 Pain Scale Pain Intensity 7 - Physical Exam General Appearance: no apparent distress, alert, anxiety, obese Eye Exam: PERRL/EOMI, eyes nml inspection Ears, Nose, Throat Exam: normal ENT inspection, moist mucous membranes Neck Exam: normal inspection, non-tender, supple, full range of motion Respiratory Exam: normal breath sounds, chest tenderness, lungs clear, airway intact, No respiratory distress Cardiovascular Exam: regular rate/rhythm, normal heart sounds, normal peripheral pulses Gastrointestinal/Abdomen Exam: soft, normal bowel sounds, No tenderness Rectal Exam: not done Back Exam: normal inspection, normal range of motion, No CVA tenderness, No vertebral tenderness Extremity Exam: normal inspection, normal range of motion, pelvis stable Neurologic Exam: alert, oriented x 3, cooperative, 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 QTc 379. No acute ischemia.) Ordered Tests: Active Orders 24 hr Category Date Time Status EKG-ER Only STAT Care 04/28/24 12:18 Active IV Insertion STAT Care 04/28/24 12:18 Active Pulse Oximetry (ED) STAT Care 04/28/24 12:18 Active CHEST 1 VIEW (PORTABLE) Stat Exams 04/28/24 14:08 Completed CBC W DIFF Stat Lab 04/28/24 12:30 Completed CMP Stat Lab 04/28/24 12:30 Completed D-DIMER QUANTITATIVE Stat Lab 04/28/24 12:33 Completed MAGNESIUM Stat Lab 04/28/24 12:30 Completed NT PRO BNPII Stat Lab 04/28/24 12:30 Completed TROPONIN Q4H Lab 04/28/24 12:30 Completed TROPONIN Q4H Lab 04/28/24 14:38 Completed TROPONIN Q4H Lab 04/28/24 20:30 Ordered Medication Summary Discontinued Medications Generic Name Dose Route Start Last Admin Trade Name Gennaroq PRN Reason Stop Dose Admin Aspirin 324 mg 04/28/24 12:18 04/28/24 12:36 Aspirin 81 Mg Tab.Chew PO 04/28/24 12:19 Not Given STAT ONE Morphine Sulfate 4 mg 04/28/24 12:32 04/28/24 12:40 Morphine Sulfate 4 Mg/Ml Injection IV 04/28/24 12:33 4 mg STAT ONE Administration Morphine Sulfate Confirm 04/28/24 12:37 Morphine Sulfate 4 Mg/Ml Injection Administered 04/28/24 12:38 Dose 4 mg .ROUTE .STK-MED ONE Ondansetron HCl 4 mg 04/28/24 12:32 04/28/24 12:40 Ondansetron Hcl 4 Mg/2 Ml Vial IV 04/28/24 12:33 4 mg STAT ONE Administration Ondansetron HCl Confirm 04/28/24 12:37 Ondansetron Hcl 4 Mg/2 Ml Vial Administered 04/28/24 12:38 Dose 4 mg .ROUTE .STK-MED ONE Lab/Rad Data: Laboratory Result Diagrams 04/28/24 12:30 04/28/24 12:30 Laboratory Results 04/28/24 04/28/24 04/28/24 Range/Units 14:38 12:33 12:30 WBC (4.23-9.07) x10^3/uL RBC (4.63-6.08) x10^6/uL Hgb (13.7-17.5) g/dL Hct (40.1-51.0) % MCV (79.0-92.2) fL MCH (25.7-32.2) pg MCHC (32.3-36.5) g/dL RDW (11.6-14.4) % Plt Count (163-337) x10^3/uL MPV (9.4-12.4) fL Gran % (34.0-67.9) % Immature Gran % (Auto) (0.001-0.429) % Nucleat RBC Rel Count (0.00-0.2) % Eos # (Auto) (0.04-0.54) x10^3/uL Immature Gran # (Auto) (0.001-0.031) x10^3u/L Absolute Lymphs (auto) (1.32-3.57) x10^3/uL Absolute Monos (auto) (0.30-0.82) x10^3/uL Absolute Nucleated RBC (0.00-0.012) x10^3u/L Lymphocytes % (21.8-53.1) % Monocytes % (5.3-12.2) % Eosinophils % (0.8-7.0) % Basophils % (0.2-1.2) % Absolute Granulocytes (1.78-5.38) x10^3/uL Basophils # (0.01-0.08) x10^3/uL D-Dimer 0.41 (0.0-0.50) mg/L Sodium (135-145) mmol/L Potassium (3.5-5.1) mmol/L Chloride (98-107) mmol/L Carbon Dioxide (22-30) mmol/L Anion Gap (5-15) MEQ/L BUN (9-20) mg/dL Creatinine (0.66-1.25) mg/dL Estimated GFR ML/MIN Glucose (74-106) mg/dL Calcium (8.4-10.2) mg/dL Magnesium (1.6-2.3) mg/dL Total Bilirubin (0.2-1.3) mg/dL AST (17-59) U/L ALT (0-50) U/L Alkaline Phosphatase (38-126) U/L Troponin I < 0.012 < 0.012 (0.000-0.033) ng/mL NT-Pro-B Natriuret Pep (<300) pg/mL Serum Total Protein (6.3-8.2) g/dL Albumin (3.5-5.0) g/dL 04/28/24 04/28/24 Range/Units 12:30 12:30 WBC 6.6 (4.23-9.07) x10^3/uL RBC 5.92 (4.63-6.08) x10^6/uL Hgb 17.9 H (13.7-17.5) g/dL Hct 51.3 H (40.1-51.0) % MCV 86.7 (79.0-92.2) fL MCH 30.2 (25.7-32.2) pg MCHC 34.9 (32.3-36.5) g/dL RDW 13.5 (11.6-14.4) % Plt Count 222 (163-337) x10^3/uL MPV 9.3 L (9.4-12.4) fL Gran % 54.6 (34.0-67.9) % Immature Gran % (Auto) 0.3 (0.001-0.429) % Nucleat RBC Rel Count 0.0 (0.00-0.2) % Eos # (Auto) 0.09 (0.04-0.54) x10^3/uL Immature Gran # (Auto) 0.02 (0.001-0.031) x10^3u/L Absolute Lymphs (auto) 2.13 (1.32-3.57) x10^3/uL Absolute Monos (auto) 0.69 (0.30-0.82) x10^3/uL Absolute Nucleated RBC 0.00 (0.00-0.012) x10^3u/L Lymphocytes % 32.3 (21.8-53.1) % Monocytes % 10.5 (5.3-12.2) % Eosinophils % 1.4 (0.8-7.0) % Basophils % 0.9 (0.2-1.2) % Absolute Granulocytes 3.60 (1.78-5.38) x10^3/uL Basophils # 0.06 (0.01-0.08) x10^3/uL D-Dimer (0.0-0.50) mg/L Sodium 137 (135-145) mmol/L Potassium 4.5 (3.5-5.1) mmol/L Chloride 104 (98-107) mmol/L Carbon Dioxide 22 (22-30) mmol/L Anion Gap 14.4 (5-15) MEQ/L BUN 15 (9-20) mg/dL Creatinine 1.14 (0.66-1.25) mg/dL Estimated GFR 73.6 ML/MIN Glucose 98 (74-106) mg/dL Calcium 9.5 (8.4-10.2) mg/dL Magnesium 2.0 (1.6-2.3) mg/dL Total Bilirubin 1.10 (0.2-1.3) mg/dL AST 40 (17-59) U/L ALT 48 (0-50) U/L Alkaline Phosphatase 104 (38-126) U/L Troponin I (0.000-0.033) ng/mL NT-Pro-B Natriuret Pep 26.0 (<300) pg/mL Serum Total Protein 7.4 (6.3-8.2) g/dL Albumin 4.8 (3.5-5.0) g/dL - Progress Progress: improved, re-examined Air Movement: good Progress Note: 04/28/24 12:46 My medical decision making and the assignment of moderate complexity to this patient's medical issue today is based on review of the patient's past medical history, review the patient's medication list, reviewed patient drug allergy list, history present illness and physical findings on examination. The workup in this patient includes placement of intravenous line, CBC, CMP, magnesium level, troponin level, BNP, D-dimer, twelve-lead EKG, chest x-ray. Differential diagnosis includes but is not limited to hypertension, electrolyte abnormalities, arrhythmia, myocardial infarction, CHF exacerbation, pulmonary embolus, pneumonia 04/28/24 14:43 I interpreted the patient's laboratory data results. Based on the laboratory data results, there are no acute, emergent medical issues. The chest x-ray was interpreted by the radiologist and I reviewed the impression. The impression states chest is inflated and clear. There is no new or acute findings. 04/28/24 15:03 I interpreted the patient's 2-hour twelve-lead EKG that was performed on 04/28/2024 at 1431. The heart rate is 61 bpm. It is atrial paced complexes. There is prolonged ID interval. There is normal axis deviation and normal QRS. QTc is 370. There is no acute ischemia present. There is no significant change from the twelve-lead EKG that was performed 2 hours ago. 04/28/24 15:27 The patient no longer has chest pain. The repeat, 2-hour, troponin level is normal. Blood Culture(s) Obtained: No Antibiotics given: No Counseled pt/family regarding: lab results, diagnosis, rad results Medical Desision Making - Independent Historian Additional History obtained from: Spouse - Diagnostic Testing Diagnostic test were ordered, analyzed, and reviewed by me: Yes Radiological Interpretation: Reviewed by me, Teleradiologist Report - Risk of complications Low Risk: Low risk of morbidity from additional dx testing or treatment - Departure Departure Disposition: Home Clinical Impression: Nonspecific chest pain Condition: Stable Critical Care Time: No Referrals: [facility] [Primary Care Provider] - Follow up/PCP as directed Additional Instructions: Take all your medications as prescribed. Call your primary care provider on 05/01/2024, to make arrangements for follow-up appointment for further evaluation and management.
[2024-04-28 12:31] LABS: BASOPHIL % 0.9 % (0.2-1.2); Basophil (Absolute #) 0.06 x10^3/uL (0.01-0.08); Eosinophil % 1.4 % (0.8-7.0); Eosinophil (Absolute #) 0.09 x10^3/uL (0.04-0.54); Hematocrit 51.3 % (40.1-51.0); Hemoglobin 17.9 g/dL (13.7-17.5); IMMATURE GRAN # 0.02 x10^3u/L (0.001-0.031); IMMATURE GRAN % 0.3 % (0.001-0.429); Lymphocyte (Absolute #) 2.13 x10^3/uL (1.32-3.57); Lymphocytes % 32.3 % (21.8-53.1); Mean Cell Volume 86.7 fL (79.0-92.2); Mean Corpuscular Hemoglobin 30.2 pg (25.7-32.2); Mean Corpuscular Hgb Concent. 34.9 g/dL (32.3-36.5); Mean Platelet Volume 9.3 fL (9.4-12.4); Monocyte (Absolute #) 0.69 x10^3/uL (0.30-0.82); Monocytes % 10.5 % (5.3-12.2); Neutrophil % 54.6 % (34.0-67.9); Platelet Count 222 x10^3/uL (163-337); Red Blood Count 5.92 x10^6/uL (4.63-6.08); Red Cell Distribution Width 13.5 % (11.6-14.4); White Blood Count 6.6 x10^3/uL (4.23-9.07)
[2024-04-28] MEDS: BABY ASPIRIN 81 MG CHEW PO ONE (12:36)
[2024-04-28] MEDS ORDERED: Zofran 4 MG/2 ML VIAL ONE (12:37)
[2024-04-28] MEDS ORDERED: MORPHINE SULFATE 4 MG INJ ONE (12:37)
[2024-04-28] MEDS: Zofran 4 MG/2 ML VIAL IV ONE (12:40)
[2024-04-28] MEDS: MORPHINE SULFATE 4 MG INJ IV ONE (12:40)
[2024-04-28 13:44] LABS: ALBUMIN 4.8 g/dL (3.5-5.0); ANION GAP 14.4 MEQ/L (5-15); BILIRUBIN,TOTAL 1.1 mg/dL (0.2-1.3); Calcium 9.5 mg/dL (8.4-10.2); Creatinine 1 1.14 mg/dL (0.66-1.25); EST GLOMERULAR FILTRATION RATE 73.6 ML/MIN; Potassium 4.5 mmol/L (3.5-5.1); Total Protein 7.4 g/dL (6.3-8.2)
--- NOTE | 2024-04-28 14:26 | XRAY ---
Indication: Chest pain. Comparison: January 23, 2023 Portable chest remains inflated and clear. Heart not enlarged again with left pacemaker. Bony thorax intact again with osteopenia and degenerative changes. No new/acute findings.
[2024-04-28 14:44] VITALS: O2SAT 97
[2024-04-28 15:28] VITALS: PULSE 62; RESP 20
[2024-04-28 15:35] VITALS: BP 131/100
== END 2024-04-28 15:35 | disposition home or self-care (01) ==
LOC: ED 12:05
DX: R07.9 Chest pain, unspecified (principal); I10 Essential (primary) hypertension; E78.5 Hyperlipidemia, unspecified; Z79.84 Long term (current) use of oral hypoglycemic drugs; Z79.899 Other long term (current) drug therapy
CPT/HCPCS: 36415; 71045; 80053; 83735; 83880; 84484; 85025; 85379; 93005; 94760; 96374; 96375; 99284; 99285; J2270; J2405

== ENCOUNTER 2024-10-25 16:07 | Day surgery (SDC) | payer MEDICARE ==
[2024-10-25] MEDS ORDERED: SYNVISC 16 MG/2 ML SYRINGE IU ONE (16:08)
[2024-10-25] MEDS ORDERED: LIDOCAINE HCL 1% 50 MG/5 ML VL IJ ONE (16:08)
--- NOTE | 2024-10-25 19:39 | XRAY ---
Indication: Right knee injection. Intraoperative fluoroscopy provided for 7 seconds. Single digital spot image submitted for interpretation demonstrates needle tip projecting over right femur intercondylar notch. Small amount of contrast injected for needle tip placement. Correlate with intraoperative findings/report.
--- NOTE | 2024-10-25 19:41 | XRAY ---
6 seconds of fluoroscopy were used in surgery for a left intra-articular knee injection.
--- NOTE | 2024-10-25 19:41 | XRAY ---
7 seconds of fluoroscopy were used in surgery for a right intra-articular knee injection.
== END 2024-10-25 17:57 | disposition home or self-care (01) ==
LOC: SDC-PAIN 16:07
PROVIDERS: ATTEND Psychiatry & Neurology Pain Medicine
DX: M17.0 Bilateral primary osteoarthritis of knee (principal); E11.9 Type 2 diabetes mellitus without complications